=== PATIENT | male | born 1965 | race Caucasian/White ===

== ENCOUNTER 2018-07-12 10:35 | Emergency (ER) | payer OTHER ==
--- NOTE | 2018-07-12 11:39 | XRAY Report ---
Reason: glf, pain swelling x 1 week Procedure Date: 07/12/2018 Accession Number: [id number] / [id number] Procedure: XR - Hand 3 View RT CPT Code: FULL RESULT: EXAM: RIGHT HAND RADIOGRAPHY EXAM DATE: 07/12/2018 11:14 AM. CLINICAL HISTORY: Right lateral hand pain and swelling x1 week after ground level fall. COMPARISON: None. TECHNIQUE: 3 views. FINDINGS: Bones: Fracture of the distal fifth metadiaphysis with approximately 3 mm of foreshortening. Joints: Normal. No subluxations. Soft Tissues: Normal. No soft tissue swelling. IMPRESSION: Boxer's fracture. RADIA
[2018-07-12] MEDS ORDERED: IBUPROFEN 800 MG TABLET PO STA (12:00)
--- NOTE | 2018-07-12 12:04 | ED Physician Documentation ---
PD HPI UPPER EXT INJURY - Stated complaint Stated Complaint: R HAND INJ - Chief complaint Chief Complaint: Ext Problem - History obtained from History obtained from: Patient - History of Present Illness Location: Right, Hand Type of injury: Fall Where injury occurred: Home Timing - onset: How many weeks ago (1) Timing - details: Still present Worsened by: Moving, Palpating Associated symptoms: Swelling Similar symptoms before: Has not had sx before - Additonal information Additional information: The patient is a 52-year-old male who fell one week ago while running after his 3-year-old daughter. He impacted his right hand on the ground. He has had pain in his right hand since that time, that is not getting better. He is right hand dominant. He denies any other injuries. Review of Systems Constitutional: denies: Fever Musculoskeletal: reports: Extremity pain (right hand). denies: Neck pain Neurologic: denies: Focal weakness, Numbness, Head injury PD PAST MEDICAL HISTORY - Past Medical History Past Medical History: No - Past Surgical History Past Surgical History: No - Present Medications Home Medications: Ambulatory Orders Medication Instructions Recorded Confirmed No Known Home Medications 07/12/18 07/12/18 - Allergies Allergies/Adverse Reactions: Allergies Allergy/AdvReac Type Severity Reaction Status Date / Time Penicillins Allergy Unknown Verified 07/12/18 10:52 - Social History Does the pt smoke?: Yes Smoking Status: Current every day smoker Does the pt drink ETOH?: Yes PD ED PE NORMAL - Vitals Vital signs reviewed: Yes (normal) - General General: Alert and oriented X 3, Well developed/nourished - HEENT HEENT: Atraumatic - Respiratory Respiratory: No respiratory distress - Derm Derm: No rash - Extremities Extremities: Other (There is slight swelling at the volar aspect of the right hand, with associated tenderness to palpation over the fifth metacarpal. There is no break in the integument. Distal neurovascular is intact.) - Neuro Neuro: Alert and oriented X 3, No motor deficit, No sensory deficit Results - Vitals Vitals: Vital Signs - 24 hr 07/12/18 07/12/18 10:46 12:14 Temperature 36.9 C Heart Rate 76 72 Respiratory 16 16 Rate Blood Pressure 134/86 H 131/87 H O2 Saturation 97 96 Oxygen O2 Source Room air - Rads (name of study) right hand Radiology: Prelim report reviewed, EMP read contemporaneously, See rad report (Fracture of the distal fifth metadiaphysis with 3 mm foreshortening.) Procedures - Splint (location) right hand Splint applied by: Physician Type of splint: Fiberglass, Ulnar gutter Other: Patient tolerated well, No complications, Neurovascular intact PD MEDICAL DECISION MAKING - ED course Complexity details: reviewed results, re-evaluated patient, considered differential, d/w patient, d/w family ED course: The patient's presentation is significant for a boxer's fracture of the right hand. Treatment in the emergency department included application of an ulnar gutter splint. I discussed with him the importance of outpatient follow-up with orthopedics, splint care, as well as potentially worrisome signs or symptoms that should prompt reevaluation in the emergency department Departure - Departure Disposition: 01 Home, Self Care Clinical Impression: Boxer's fracture Qualifiers: Encounter type: initial encounter Fracture type: closed Qualified Code(s): S62.339A - Displaced fracture of neck of unspecified metacarpal bone, initial encounter for closed fracture Condition: Stable Instructions: ED Fx Boxer Follow-Up: [facility] [Provider Group] Comments: Keep the splint clean and dry. Keep your right arm elevated as much the time as possible. You can use ice pack intermittently to help decrease swelling. You can use ibuprofen, up to 800 mg 3 times daily for anti-inflammatory effect. Follow-up with orthopedic surgeon within 1 week. Call to schedule appointment. Return to the emergency department if you develop markedly increasing pain or swelling, or otherwise worsening symptoms. Discharge Date/Time: 07/12/18 12:15
[2018-07-12 12:15] VITALS: BP 131/87
== END 2018-07-12 12:15 | disposition home or self-care (01) ==
LOC: ED 10:35
DX: S62.336A Displaced fracture of neck of fifth metacarpal bone, right hand, initial encounter for closed fracture (principal); W18.30XA Fall on same level, unspecified, initial encounter; Y93.02 Activity, running; Y92.009 Unspecified place in unspecified non-institutional (private) residence as the place of occurrence of the external cause; F17.200 Nicotine dependence, unspecified, uncomplicated
CPT/HCPCS: 29125; 73130; 99282; 99283; A9270

== ENCOUNTER 2018-07-23 12:14 | Outpatient (CLI) | payer OTHER ==
[2018-07-23 12:36] LABS: BASOPHILS # (AUTO) 0.1 10^3/uL (0.0-0.1); EOSINOPHILS # (AUTO) 0.1 10^3/uL (0.0-0.7); EOSINOPHILS % (AUTO) 1.5 %; HGB - HEMOGLOBIN 16.8 g/dL (14.0-18.0); LYMPHOCYTES # (AUTO) 2.1 10^3/uL (1.5-3.5); LYMPHOCYTES % (AUTO) 20.2 %; MEAN CORPUSCULAR HEMOGLOBIN 33.8 pg (27.0-31.0); MEAN CORPUSCULAR HGB CONC 33.6 g/dL (32.0-36.0); MEAN CORPUSCULAR VOLUME 100.7 fL (80.0-94.0); MEAN PLATELET VOLUME 8.4 fL (7.4-11.4); MONOCYTES # (AUTO) 1.1 10^3/uL (0.0-1.0); MONOCYTES % (AUTO) 10.5 %; NEUTROPHILS # (AUTO) 6.8 10^3/uL (1.5-6.6); NEUTROPHILS % (AUTO) 66.8 %; PLT - PLATELET COUNT 312 10^3/uL (130-450); RED BLOOD COUNT 4.98 10^6/uL (4.70-6.10); WHITE BLOOD COUNT 10.2 x10^3/uL (4.8-10.8)
== END 2018-07-23 12:15 | disposition home or self-care (01) ==
LOC: LAB 12:14
PROVIDERS: ATTEND Orthopaedic Surgery
DX: S62.336A Displaced fracture of neck of fifth metacarpal bone, right hand, initial encounter for closed fracture (principal)
CPT/HCPCS: 36415; 85025

== ENCOUNTER 2018-07-24 08:16 | Day surgery (SDC) | payer OTHER ==
[2018-07-24] MEDS ORDERED: CEFAZOLIN SODIUM IN 0.9 % NACL 2 GM/100 ML BAG IV ONE (08:20)
--- NOTE | 2018-07-24 08:38 | ANESTHESIA ---
Pre-Anesthesia VS, & Labs - Diagnosis Right 5th finger fracture - Procedure ORIF right 5th finger Vital Signs: Temp Pulse Resp BP Pulse Ox 36.9 C 70 18 132/82 H 95 07/24/18 08:25 07/24/18 08:25 07/24/18 08:25 07/24/18 08:25 07/24/18 08:25 Height 5 ft 9 in Weight (kg) 69.5 kg Body Mass Index 19.9 - NPO >8 hours Home Medications and Allergies Home Medications: Ambulatory Orders ALPRAZolam [Alprazolam] 1 - 2 tab PO BID PRN 07/23/18 ALPRAZolam [Alprazolam] 1 - 2 tab PO BID PRN 07/23/18 Allergies/Adverse Reactions: Allergies Allergy/AdvReac Type Severity Reaction Status Date / Time aspirin Allergy Anaphylaxis Verified 07/24/18 08:27 Penicillins Allergy Unknown Verified 07/12/18 10:52 Anes History & Medical History - Anesthetic History Anesthesia Complications: reports: No previous complications Family history of Anesthesia Complications: Denies Family history of Malignant Hyperthermia: Denies - Medical History Cardiovascular: reports: None Pulmonary: reports: None Gastrointestinal: reports: None, Ulcers Urinary: reports: None Neuro: reports: None Musculoskeletal: reports: Chronic back pain Endocrine/Autoimmune: reports: None Blood Disorders: reports: None Skin: reports: None Smoking Status: Current every day smoker Psychosocial: reports: No issues indicated - Surgical History Eyes Ears Nose Throat (EENT): Cataracts Exam General: Alert, Oriented x3, Cooperative Dental: Other (Missing upper right) Mouth Opening: Greater than 4 Fingerbreadths Neck Mobility: Normal Mallampati classification: I Thyromental Distance: greater than 6 cm Respiratory: Lungs clear Cardiovascular: Regular rate Neurological: Normal gait Mental/Cognitive Status: Alert/Oriented X3 Cognitive Status: Within normal limits Plan Anesthesia Type: General Consent for Procedure(s) Verified and Reviewed: Yes Code Status: Attempt Resuscitation ASA classification: 2-Mild systemic disease Is this case an emergency?: No
[2018-07-24] MEDS ORDERED: LACTATED RINGERS 1,000 ML IV ONE ×2 (08:43→12:03)
[2018-07-24] MEDS ORDERED: ROPIVACAINE 0.5% PF 20 ML AMPULE ONE (10:09)
[2018-07-24] MEDS ORDERED: ROPIVACAINE 0.5% PF 20 ML AMPULE SUBQ ONE (10:34)
[2018-07-24] MEDS ORDERED: PROPOFOL 200 MG/20 ML VIAL IVP ONE (10:52)
[2018-07-24] MEDS ORDERED: ONDANSETRON 4 MG/2 ML VIAL IVP ONE (10:52)
[2018-07-24] MEDS ORDERED: LIDOCAINE-MPF 2% 5 ML VIAL IM ONE (10:52)
--- NOTE | 2018-07-24 11:32 | OPERATIVE REPORT ---
Operative Report - General Procedure Date: 07/24/18 Planned Procedure: pinning of right 5th metacarpal fracture Pre-Op Diagnosis: unstable 5th metacarpal neck fracture Procedure Performed: open reduction and pinning of right 5th metacarpal neck fracture Post Op Diagnosis: same - Procedure Note Primary Surgeon: alexx Anesthesia Technique: General ET tube Estimated Blood Loss (mL): 5
[2018-07-24] MEDS: fentaNYL 100 MCG/2 ML VIAL ONE ×2 (11:33→11:39)
[2018-07-24] MEDS ORDERED: oxyCODONE 5 MG TABLET PO PRN (11:33)
[2018-07-24] MEDS: HYDROmorphone 1 MG/ML CARPUJECT ONE ×2 (11:50→11:57)
[2018-07-24] MEDS ORDERED: oxyCODONE 5 MG TABLET ONE (12:32)
[2018-07-24 12:39] VITALS: BP 112/73
--- NOTE | 2018-07-24 18:36 | OPERATIVE REPORT ---
DATE OF SERVICE: 07/24/2018 Physician: Maryse Mazariegos MD PREOPERATIVE DIAGNOSIS: Right fifth metacarpal neck comminuted and displaced fracture, closed. POSTOPERATIVE DIAGNOSIS: Right fifth metacarpal neck comminuted and displaced fracture, closed. PROCEDURE PERFORMED: Closed reduction followed by open reduction and internal fixation using crossed K-wires. OPERATING SURGEON: Maryse Mazariegos MD ANESTHESIA: General by Dr. Maya. INDICATIONS FOR SURGERY: Patient is a 52-year-old male who suffered an injury to his hand causing a fifth metacarpal closed fracture. Sequential x-rays showed his fracture to be short, oblique and uns table, slightly comminuted and showing a tendency towards complete displacement and unacceptable shor tening and angulation. For this reason, surgery was discussed with the patient and recommended initi ally with the thought that this might be achieved with closed reduction and pinning, which was unable to be satisfactorily achieved at surgery requiring open reduction and pinning. DESCRIPTION OF OPERATIVE PROCEDURE: Patient was taken to the operating room and was given a general anesthetic and a tourniquet was placed on his arm and his forearm and hand were sterilely prepped and draped in standard fashion. Patient's fracture was imaged with C-arm and closed reduction maneuver was undertaken trying to gain an acceptable reduction for pinning and the fracture proved to be very unstable in 2 planes and always drifting towards the lateral aspect towards the radial side and into apex volar angulation. Once it was deemed that it could not be pinned this way a small dorsal incisi on was made over the fracture site and the fracture was exposed. It was noted to be oblique and comm inuted, did not yet have callus formation. It was very difficult to reduce even with open undertakin g and measures. Pinning also was done with some difficulty, but ultimately gaining fixation distally with cross pins that held this fracture in a much improved position in both planes of deformity and restored rotational alignment. Wound itself was irrigated and closed with interrupted Prolene at the end and the pins were bent and cut to avoid trauma on adjacent fingers and tissue and an ulnar gutte r splint was applied. Patient was taken to recovery room in stable condition. ESTIMATED BLOOD LOSS: Minimal. COMPLICATIONS: None. SPONGE AND NEEDLE COUNT: Correct. TD: 07/24/2018 16:46
== END 2018-07-24 08:17 | disposition home or self-care (01) ==
LOC: SDS 08:16
PROVIDERS: ATTEND Orthopaedic Surgery
PROC: 0PSP04Z Reposition Right Metacarpal with Internal Fixation Device, Open Approach (ICD-10-PCS; principal; 2018-07-24 09:30)
DX: S62.326A Displaced fracture of shaft of fifth metacarpal bone, right hand, initial encounter for closed fracture (principal); W19.XXXA Unspecified fall, initial encounter; F41.9 Anxiety disorder, unspecified; F32.9 Major depressive disorder, single episode, unspecified; G89.29 Other chronic pain; M54.9 Dorsalgia, unspecified; Z87.891 Personal history of nicotine dependence
CPT/HCPCS: 26615; A9270; C1713; J0690; J1170; J7120

== ENCOUNTER 2018-12-18 16:30 | Outpatient (CLI) | payer OTHER ==
[2018-12-18 20:19] LABS: FREE T4 (FREE THYROXINE) 0.77 ng/dL (0.58-1.64)
== END 2018-12-18 23:59 | disposition home or self-care (01) ==
LOC: LAB.R 16:30
PROVIDERS: ATTEND Physician Assistant
DX: R94.6 Abnormal results of thyroid function studies (principal)
CPT/HCPCS: 84439; 84443

== ENCOUNTER 2019-08-16 08:00 | Outpatient (CLI) | payer OTHER ==
[2019-08-16 19:27] LABS: HB2 TOTAL 17.5 g/dL; HEMOGLOBIN A1C 0.67 g/dL; HEMOGLOBIN A1C % 5.7 % (4.6-6.2)
== END 2019-08-16 23:59 | disposition home or self-care (01) ==
LOC: LAB.WCP 08:00
PROVIDERS: ATTEND Physician Assistant
DX: R73.9 Hyperglycemia, unspecified (principal); E03.9 Hypothyroidism, unspecified
CPT/HCPCS: 36415; 83036; 84443

== ENCOUNTER 2023-08-24 16:37 | Outpatient (CLI) | payer SELFPAY | END 2023-08-24 16:38 | disposition left against medical advice (07) | LOC: EMS 16:37 | DX: S00.81XA Abrasion of other part of head, initial encounter (principal); S60.811A Abrasion of right wrist, initial encounter; W18.30XA Fall on same level, unspecified, initial encounter; Y92.89 Other specified places as the place of occurrence of the external cause; F10.10 Alcohol abuse, uncomplicated ==

== ENCOUNTER 2023-08-24 19:58 | Outpatient (CLI) | payer SELFPAY | END 2023-08-24 19:59 | disposition critical access hospital (66) | LOC: EMS 19:58 → LAB 08-26 09:41 | DX: S00.03XA Contusion of scalp, initial encounter (principal); S00.81XA Abrasion of other part of head, initial encounter; W19.XXXA Unspecified fall, initial encounter; Y92.007 Garden or yard of unspecified non-institutional (private) residence as the place of occurrence of the external cause; F10.90 Alcohol use, unspecified, uncomplicated | CPT/HCPCS: A0425; A0429 ==

== ENCOUNTER 2023-08-24 20:19 | Emergency (ER) | payer SELFPAY ==
--- NOTE | 2023-08-24 20:38 | ED Physician Documentation ---
History of Present Illness - Stated complaint Stated Complaint: FALL/ETOH - Chief complaint Chief Complaint: General - History obtained from History obtained from: Patient - Additonal information Additional information: 57-year-old man with history of alcohol abuse presents status post multiple falls today with abrasion to the right face. Last tetanus 9 years ago. Patient apparently had a fall [place] the [place] from standing earlier today with head trauma and 62nd loss of consciousness and then fell again at the house later, hitting his head without loss of consciousness. Timeline is unclear and patient is clinically intoxicated and unable to give proper history. However he is AO x 3. Fingerstick glucose on scene was 89. PD PAST MEDICAL HISTORY - Past Medical History Cardiovascular: None Respiratory: None Neuro: None Endocrine/Autoimmune: None GI: None, Ulcers : None HEENT: Other Psych: Anxiety Musculoskeletal: Chronic back pain Derm: None - Past Surgical History Past Surgical History: No HEENT: Cataracts - Present Medications Home Medications: Ambulatory Orders Medication Instructions Recorded Confirmed No Known Home Medications 08/24/23 08/24/23 - Allergies Allergies/Adverse Reactions: Allergies Allergy/AdvReac Type Severity Reaction Status Date / Time aspirin Allergy Anaphylaxis Verified 08/24/23 20:28 Penicillins Allergy Unknown Verified 08/24/23 20:28 - Social History Does the pt smoke?: Yes Smoking Status: Current every day smoker Does the pt drink ETOH?: Yes PD ED PE NORMAL - Vitals Vital signs reviewed: Yes - General General: Alert and oriented X 3, No acute distress, Well developed/nourished, Other (Clinically intoxicated) - HEENT HEENT: Atraumatic, PERRL, EOMI, Moist mucous membranes, Pharynx benign - Neck Neck: No bony TTP, Other (Declined c-collar) - Cardiac Cardiac: RRR - Respiratory Respiratory: No respiratory distress, Clear bilaterally - Abdomen Abdomen: Non tender, Non distended - Back Back: No spinal TTP - Derm Derm: Normal color, Warm and dry - Extremities Extremities: No deformity - Neuro Neuro: Alert and oriented X 3 - Psych Psych: Normal mood, Normal affect Results - Vitals Vitals: Vital Signs - 24 hr 08/24/23 20:28 Temperature 36.4 C L Heart Rate 72 Respiratory 16 Rate Blood Pressure 132/76 H O2 Saturation 96 Oxygen O2 Source Room air - Labs Labs: Laboratory Tests 08/24/23 20:40 POC Whole Bld Glucose 93 PD Medical Decision Making - ED course ED course: 57-year-old man presents with clinical intoxication and possible head trauma with loss of consciousness earlier today after fall from standing, also with fall later in the day. Patient is well appearing with normal neuro exam. ambulatory without difficulty. clinically sober. fingerstick WNL with ems. ct head negative. plan to dc home with ride. return precautions given. Departure - Departure Disposition: Home, Self Care Clinical Impression: Head injury, Abrasion of face, Alcohol abuse Condition: Stable Instructions: ED Abrasion, ED Head Injury Closed, ED Alcohol Abuse Comments: You were seen in the emergency department for closed head injury. Your CT was normal except for a bump on the back of the scalp (hematoma, i.e., "egg on the head"). Please follow-up with your primary care provider and return to the emergency department if you have any new or worsening symptoms or other concerns. Forms: PCP List
[2023-08-24] MEDS: BACITRACIN ZINC OINT 1 PACKET TOP STA (20:42)
--- NOTE | 2023-08-24 21:23 | CT Report ---
PROCEDURE: Head WO INDICATIONS: +HT with loc, +etoh TECHNIQUE: Noncontrast 4.5 mm thick angled axial sections acquired from the foramen magnum to the vertex. For r adiation dose reduction, the following was used: automated exposure control, adjustment of mA and/or kV according to patient size. COMPARISON: None. FINDINGS: Image quality: Excellent. CSF spaces: Basal cisterns are patent. No extra-axial fluid collections. Ventricles are normal in size and shape. Brain: No midline shift. No intracranial masses or hemorrhage. Carrera-white matter interface is norm al. Skull and face: Calvarium and visualized facial bones are intact, without suspicious lesions. Left posterior parietal scalp hematoma. Sinuses: Visualized sinuses and mastoids are clear. IMPRESSION: No acute intracranial pathology. Left posterior parietal scalp hematoma. Reviewed by: Olivia Sanchez MD on 08/24/2023 9:22 PM PDT Approved by: Olivia Sanchez MD on 08/24/2023 9:22 PM PDT Station ID: [id number]
[2023-08-24 21:34] VITALS: BP 130/74; O2SAT 98
== END 2023-08-24 21:28 | disposition home or self-care (01) ==
LOC: EDUNIT# → ED 20:19
DX: S00.81XA Abrasion of other part of head, initial encounter (principal); S09.90XA Unspecified injury of head, initial encounter; W19.XXXA Unspecified fall, initial encounter; Y92.009 Unspecified place in unspecified non-institutional (private) residence as the place of occurrence of the external cause; F10.129 Alcohol abuse with intoxication, unspecified; F17.200 Nicotine dependence, unspecified, uncomplicated
CPT/HCPCS: 70450; 99283; 99284; A9270